=== PATIENT | male | born 1960 ===

== ENCOUNTER 2019-12-27 18:17 | Emergency (ER) | payer OTHER ==
[2019-12-27 18:32] VITALS: BP 121/88
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
== END 2019-12-27 21:00 | disposition home or self-care (01) ==
LOC: ED 20:43
DX: G89.11 Acute pain due to trauma (principal); M25.561 Pain in right knee; W00.0XXA Fall on same level due to ice and snow, initial encounter; Y93.89 Activity, other specified; Y92.410 Unspecified street and highway as the place of occurrence of the external cause; Y99.8 Other external cause status
CPT/HCPCS: 99283